=== PATIENT | female | born 1995 | race Caucasian/White ===

== ENCOUNTER 2019-08-19 12:07 | Emergency (ER) | payer OTHER ==
[2019-08-19] MEDS ORDERED: HYDROmorphone 0.5 MG/0.5 ML Syringe IVPUSH ONE (12:33)
[2019-08-19] MEDS ORDERED: Ondansetron 4 MG/2 ML SDV IVPUSH ONE (12:33)
--- NOTE | 2019-08-19 12:41 | EDM.PDOC ---
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 She states that this cramping began yesterday, but the bleeding did not begin until approximately 30 minutes prior to arrival. Patient did see her PYRIDINE RECOVERY OPERATOR doctor Marija yesterday and states that she did notify her of this cramping, however she was told that everything was normal on her ultrasound. She states that she was not given an estimated due date, and she is unsure of her last menstrual period. She thought her first miss period may have been an May, however she states that Dr. Dutton said she thought it was likely closer to March. She has had daily vomiting for the last week with intermittent diarrhea. She is unsure of her blood type. In addition, patient complains of sore throat, productive cough, fever and chills for the last couple days. She is concerned that she may have strep throat. She has not been checking her temperatures at home, however she did state that Dr. Dutton told her her temperature was "up a little bit " yesterday in the clinic. She denies shortness of breath. She did not have a flu shot this year. 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 Denies: Ear Pain Respiratory: Reports: Cough. Denies: Shortness of Breath, Wheezing Cardiovascular: Reports: No Symptoms Endocrine: Reports: No Symptoms GI/Abdominal: Reports: Diarrhea, Nausea, Vomiting : Reports: Pain (pelvic ), Other (heavy bleeding with clots) Musculoskeletal: Reports: No Symptoms Skin: Reports: No Symptoms Neurological: Reports: No Symptoms Psychiatric: Reports: No Symptoms Hematologic/Lymphatic: Reports: No Symptoms Immunologic: Reports: No Symptoms ED EXAM - Physical Exam Exam: See Below Exam Limited By: No Limitations General Appearance: Alert, WD/WN, Mild Distress Ears: Normal External Exam, Normal Canal, Normal TMs Nose: Normal Inspection, Normal Mucosa Throat/Mouth: Inflammation (tonsilar and uvula) Head: Atraumatic, Normocephalic Neck: Normal Inspection, Supple, Non-Tender Respiratory/Chest: No Respiratory Distress, Lungs Clear, Normal Breath Sounds, No Accessory Muscle Use, Chest Non-Tender Cardiovascular: Normal Peripheral Pulses, Regular Rate, Rhythm, No Murmur GI/Abdominal Exam: Normal Bowel Sounds, Soft, Non-Tender, No Distention (Female) Exam: Enlarged Uterus, Vaginal Bleeding (moderate amount). No: Cervical Dilatation, Cervical Lesions, Tissue Present in Cervix/Vagina, Vaginal Lesions, Vaginal Tears Neurological: Alert, Oriented, Normal Cognition Psychiatric: Normal Affect, Normal Mood Skin Exam: Warm, Dry, Intact, Normal Color, No Rash Course - Vital Signs Last Recorded V/S: Last Vital Signs Temp 97.8 F 08/19/19 12:16 Pulse 93 08/19/19 12:16 Resp 16 08/19/19 12:16 BP 127/81 08/19/19 12:16 Pulse Ox 100 08/19/19 12:16 - Orders/Labs/Meds Orders: Active Orders 24 hr Category Date Time Status Pelvic Exam, Set Up [RC] ASDIRECTED Care 08/19/19 12:57 Active CULTURE STREP A CONFIRMATION [RM] Stat Lab 08/19/19 13:10 Results PATIENT RETYPE [BBK] Routine Lab 08/19/19 14:08 Ordered STREP SCRN A RAPID W CULT CONF [RM] Stat Lab 08/19/19 13:10 Results Labs: Laboratory Tests 08/19/19 08/19/19 08/19/19 Range/Units 12:40 12:40 12:40 WBC 4.33 (3.98-10.04) K/mm3 RBC 4.52 (3.98-5.22) M/mm3 Hgb 14.2 (11.2-15.7) gm/dl Hct 42.5 (34.1-44.9) % MCV 94.0 (79.4-94.8) fl MCH 31.4 (25.6-32.2) pg MCHC 33.4 (32.2-35.5) g/dl RDW Std Deviation 44.5 (36.4-46.3) fL Plt Count 185 (182-369) K/mm3 MPV 11.0 (9.4-12.3) fl Neut % (Auto) 68.4 (34.0-71.1) % Lymph % (Auto) 12.7 L (19.3-51.7) % [place] % (Auto) 18.5 H (4.7-12.5) % Eos % (Auto) 0 L (0.7-5.8) Baso % (Auto) 0.2 (0.1-1.2) % Neut # (Auto) 2.96 (1.56-6.13) K/mm3 Lymph # (Auto) 0.55 L (1.18-3.74) K/mm3 [place] # (Auto) 0.80 H (0.24-0.36) K/mm3 Eos # (Auto) 0.00 L (0.04-0.36) K/mm3 Baso # (Auto) 0.01 (0.01-0.08) K/mm3 Sodium 136 (136-145) mEq/L Potassium 3.2 L (3.5-5.1) mEq/L Chloride 100 (98-107) mEq/L Carbon Dioxide 23 (21-32) mEq/L Anion Gap 16.2 H (5-15) BUN 7 (7-18) mg/dL Creatinine 0.9 (0.55-1.02) mg/dL Est Cr Clr Drug Dosing 84.67 mL/min Estimated GFR (MDRD) > 60 (>60) mL/min BUN/Creatinine Ratio 7.8 L (14-18) Glucose 117 H (74-106) mg/dL Calcium 9.1 (8.5-10.1) mg/dL Total Bilirubin 0.4 (0.2-1.0) mg/dL AST 28 (15-37) U/L ALT 30 (14-59) U/L Alkaline Phosphatase 53 (46-116) U/L Total Protein 7.3 (6.4-8.2) g/dl Albumin 4.1 (3.4-5.0) g/dl Globulin 3.2 gm/dL Albumin/Globulin Ratio 1.3 (1-2) HCG, Quant 80307.0 mIU/mL Blood Type 08/19/19 Range/Units 12:40 WBC (3.98-10.04) K/mm3 RBC (3.98-5.22) M/mm3 Hgb (11.2-15.7) gm/dl Hct (34.1-44.9) % MCV (79.4-94.8) fl MCH (25.6-32.2) pg MCHC (32.2-35.5) g/dl RDW Std Deviation (36.4-46.3) fL Plt Count (182-369) K/mm3 MPV (9.4-12.3) fl Neut % (Auto) (34.0-71.1) % Lymph % (Auto) (19.3-51.7) % [place] % (Auto) (4.7-12.5) % Eos % (Auto) (0.7-5.8) Baso % (Auto) (0.1-1.2) % Neut # (Auto) (1.56-6.13) K/mm3 Lymph # (Auto) (1.18-3.74) K/mm3 [place] # (Auto) (0.24-0.36) K/mm3 Eos # (Auto) (0.04-0.36) K/mm3 Baso # (Auto) (0.01-0.08) K/mm3 Sodium (136-145) mEq/L Potassium (3.5-5.1) mEq/L Chloride (98-107) mEq/L Carbon Dioxide (21-32) mEq/L Anion Gap (5-15) BUN (7-18) mg/dL Creatinine (0.55-1.02) mg/dL Est Cr Clr Drug Dosing mL/min Estimated GFR (MDRD) (>60) mL/min BUN/Creatinine Ratio (14-18) Glucose (74-106) mg/dL Calcium (8.5-10.1) mg/dL Total Bilirubin (0.2-1.0) mg/dL AST (15-37) U/L ALT (14-59) U/L Alkaline Phosphatase (46-116) U/L Total Protein (6.4-8.2) g/dl Albumin (3.4-5.0) g/dl Globulin gm/dL Albumin/Globulin Ratio (1-2) HCG, Quant mIU/mL Blood Type A POSITIVE Meds: Medications Discontinued Medications Generic Name Dose Route Start Last Admin Trade Name Freq PRN Reason Stop Dose Admin Hydromorphone HCl 0.5 mg 08/19/19 12:33 08/19/19 12:49 Dilaudid IVPUSH 08/19/19 12:34 0.5 mg ONETIME ONE Administration Hydromorphone HCl Confirm 08/19/19 12:45 08/19/19 14:48 Dilaudid Administered 08/19/19 12:46 Not Given Dose 0.5 mg .ROUTE .STK-MED ONE Sodium Chloride 1,000 mls @ 150 mls/hr 08/19/19 12:45 08/19/19 12:51 Normal Saline IV 150 mls/hr ASDIRECTED ADEN Administration Ondansetron HCl 4 mg 08/19/19 12:33 08/19/19 12:49 Zofran IVPUSH 08/19/19 12:34 4 mg ONETIME ONE Administration Potassium Chloride 40 meq 08/19/19 14:46 08/19/19 14:54 Klor-Con M20 PO 08/19/19 14:47 40 meq ONETIME ONE Administration - Re-Assessments/Exams Free Text/Narrative Re-Assessment/Exam: 08/19/19 14:54 Patient's transvaginal ultrasound impression is as follows: 1. Single intrauterine gestation. Dates as noted above. 2. 2 cysts within the maternal right ovary is met with measurements as noted above. 3. Very small subchorionic hemorrhage. Estimated gestational age is 6 weeks 4 days with an estimated due date of . Her labs indicated that her potassium is mildly low at 3.2 and her quantitative hCG is elevated at 49,608 which is compatible with a from 4-6 weeks. Blood type is a positive so there is no need for rhogam. I have ordered KCl 40 meq oral. On exam, there was a moderate amount of blood and clots present in the vaginal canal. Source of bleeding was identified as the cervical os. Cervix is closed on bimanual exam. It is unsure at this point if the source of the patient's bleeding is from a spontaneous or from the chorionic hemorrhage. I did educate the patient on this and that at this point what she is having is what is considered a threatened miscarriage. I will discharge her home with instructions to return to the ER if she saturating more than 2 pads per hour for 2 hours or she has worsening pain. She will go home with some Hartly as for the pain as needed. We have scheduled her an appointment with Dr. West at 8:30 on Thursday for a follow-up as she requests not to follow-up with Dr. Dutton. With regard to her respiratory complaints. Her strep and influenza swab were negative it is likely that she is suffering from a viral respiratory infection. Discharge instructions as noted. Departure - Departure Time of Disposition: 14:55 Disposition: Home, Self-Care 01 Clinical Impression: Threatened , Viral respiratory illness - Discharge Information *PRESCRIPTION DRUG MONITORING PROGRAM REVIEWED*: No *COPY OF PRESCRIPTION DRUG MONITORING REPORT IN PATIENT HINA: No Prescriptions: Acetaminophen/HYDROcodone [Hartly 325-5 MG] 1 tab PO Q4H PRN #10 tablet PRN Reason: Pain Instructions: Viral Respiratory Infection, [id number], Threatened Miscarriage , [id number] Referrals: Jose West MD [Physician] - Forms: ED Department Discharge Additional Instructions: You were seen in the emergency department today with pelvic pain, heavy, vaginal bleeding, and cough with sore throat. Your ultrasound did show a single in the uterus with measurements of 6 weeks and 4 days and an estimated due date of 04/09/20. There is also a subchorionic hemorrhage present. At this time, you have a threatened miscarriage. We will discharge you home at this time. If your bleeding should worsen and you are saturating 2 or more pads for 2 hours or if you pain worsens, you should return to the emergency department. We recommend that you take over the county Tylenol for pain. We have also prescribed you Hartly for pain. You may take 1 tab every 4 hours as needed for pain for pain not relieved by tylenol. Please be aware that the Hartly does contain 325mg of tylenol per tablet and you should not exceed 4000mg from all sources in a 24 hour period. Please follow-up on Thursday with OBGYN. An appointment has been scheduled for you with Dr. Jose West at the at 0830 on Thursday morning. If you experience any new or worsening symptoms, please do not hesitate to return to the emergency department. Sepsis Event Note - Evaluation Sepsis Screening Result: No Definite Risk - Focused Exam Vital Signs: Vital Signs Temp Pulse Resp BP Pulse Ox 08/19/19 12:16 97.8 F 93 16 127/81 100 Date Exam was Performed: 08/19/19 Time Exam was Performed: 18:26 - My Orders Last 24 Hours: My Active Orders 08/19/19 12:57 Pelvic Exam, Set Up [RC] ASDIRECTED 08/19/19 13:10 CULTURE STREP A CONFIRMATION [RM] Stat STREP SCRN A RAPID W CULT CONF [RM] Stat 08/19/19 14:08 PATIENT RETYPE [BBK] Routine - Assessment/Plan Last 24 Hours: My Active Orders 08/19/19 12:57 Pelvic Exam, Set Up [RC] ASDIRECTED 08/19/19 13:10 CULTURE STREP A CONFIRMATION [RM] Stat STREP SCRN A RAPID W CULT CONF [RM] Stat 08/19/19 14:08 PATIENT RETYPE [BBK] Routine
[2019-08-19] MEDS ORDERED: HYDROmorphone 0.5 MG/0.5 ML Syringe ONE (12:45)
[2019-08-19] MEDS ORDERED: Sodium Chloride 0.9% 1,000 ML IV SCH (12:45)
--- NOTE | 2019-08-19 14:27 | US ---
First trimester obstetrical ultrasound: Multiple real-time images were obtained transvaginally. Comparison: No previous study for current . Dates: Current ultrasound: REBEKAH 04/09/20, gestational age 6 weeks 4 days Single intrauterine gestation is seen. Amniotic fluid volume is normal. Small pole and yolk sac are present. Two cysts are noted within the maternal right ovary measuring 2.1 cm and 2.0 cm. No free fluid is seen. Small subchorionic hemorrhage is seen. Measurements: [place]-rump length: 0.63 cm - 6 weeks 4 days Heart rate: 112 bpm Impression: 1. Single intrauterine gestation. Dates as noted above. 2. Two cysts within the maternal right ovary with measurements as noted above. 3. Very small subchorionic hemorrhage. Diagnostic code #2 This report was dictated in [place] Standard Time
[2019-08-19] MEDS ORDERED: Potassium Chloride 20 MEQ Tab.ER PO ONE (14:46)
== END 2019-08-19 15:16 | disposition home or self-care (01) ==
LOC: JD.ED 12:07
DX: O20.0 Threatened abortion (principal); O99.511 Diseases of the respiratory system complicating pregnancy, first trimester; J98.9 Respiratory disorder, unspecified; O98.511 Other viral diseases complicating pregnancy, first trimester; B34.9 Viral infection, unspecified; O99.341 Other mental disorders complicating pregnancy, first trimester; F41.9 Anxiety disorder, unspecified; F32.9 Major depressive disorder, single episode, unspecified; Z79.899 Other long term (current) drug therapy; Z98.890 Other specified postprocedural states; Z87.891 Personal history of nicotine dependence; Z3A.01 Less than 8 weeks gestation of pregnancy
CPT/HCPCS: 36415; 76817; 80053; 84702; 85025; 86900; 86901; 87081; 87430; 87804; 96361; 96374; 96375; 99284; A9270; J1170; J2405; J7030; 99283

== ENCOUNTER 2019-08-24 10:39 | Emergency (ER) | payer OTHER ==
[2019-08-24] MEDS ORDERED: Sodium Chloride 0.9% 10 ML Syringe FLUSH PRN (11:29)
[2019-08-24] MEDS ORDERED: Sodium Chloride 0.9% 1,000 ML IV ONE (11:31)
[2019-08-24] MEDS ORDERED: Metoclopramide 10 MG/2 ML SDV IVPUSH ONE (11:32)
[2019-08-24] MEDS ORDERED: HYDROmorphone 0.5 MG/0.5 ML Syringe IVPUSH ONE ×2 (11:32→13:19)
[2019-08-24] MEDS ORDERED: diphenhydrAMINE 50 MG/ML SDV IVPUSH ONE (11:33)
--- NOTE | 2019-08-24 11:47 | EDM.PDOC ---
ED HPI GENERAL MEDICAL PROBLEM - General Chief Complaint: Gastrointestinal Problem Stated Complaint: MISCARRIAGE,WEAK Time Seen by Provider: 08/24/19 10:57 Source of Information: Reports: Patient, Family (mother), Old Records (visit from 08/19/19), RN Notes Reviewed History Limitations: Reports: No Limitations - History of Present Illness INITIAL COMMENTS - FREE TEXT/NARRATIVE: Patient is a 24-year-old female who presents to the ED for multiple complaints. Patient notes she was seen in this ER on 08/19/2019, and was evaluated for a threatened miscarriage. Her hCG level at that time was 49,608, her blood type is A+, and the ultrasound showed a single intrauterine gestation with a heartbeat of 112 bpm, at a gestational age of around 6 weeks 4 days, there was also a subchorionic hemorrhage present. She had strep screen and flu screen done at that time, both of these were negative. She was sent home with some pain medication, and general recommendations and to follow-up with Dr. West 08/22/2019. Patient notes she was still feeling under the weather, so did not go to this appointment. Patient notes she has not had much for vaginal bleeding since Thursday, and states that she is still having sharp abdominal pains in her lower abdomen, she would rate this at 9 out of 10. She notes she is still having all over body aches, feelings of generalized weakness, she has not been eating much due to a poor appetite, subjective fevers and chills, she has not taken her temperature at home, and she is afebrile at time of ER triage. She states she has a headache that is around a 10 out of 10, she is having some nausea and vomiting and diarrhea, however the diarrhea is intermittent. This is patient's first , so she is a G1, P0. She was following with Dr. Dougherty, but states she is going to try to switch BUS DRIVER providers. Patient notes that her last Sarah Ann pain medication that she took was on Thursday, as she was only prescribed 10 tablets. Abdomen Pain Score (Numeric/FACES): 9 - Related Data Allergies Allergy/AdvReac Type Severity Reaction Status Date / Time No Known Allergies Allergy Verified 08/19/19 12:15 Home Meds: Home Meds Sertraline [Zoloft] 50 mg PO DAILY 08/19/19 [History] Past Medical History Respiratory History: Reports: Asthma BUS DRIVER History: Reports: Psychiatric History: Reports: Anxiety, Depression - Infectious Disease History Infectious Disease History: Reports: Chicken Pox - Past Surgical History HEENT Surgical History: Reports: Adenoidectomy, Tonsillectomy Social & Family History - Family History Family Medical History: Noncontributory - Tobacco Use Smoking Status *Q: Never Smoker Second Hand Smoke Exposure: No - Caffeine Use Caffeine Use: Reports: None - Recreational Drug Use Recreational Drug Use: No ED ROS GENERAL - Review of Systems Review Of Systems: See Below Constitutional: Reports: Fever (subjective), Chills (subjective), Malaise ( generalized), Decreased Appetite. Denies: Weight Loss HEENT: Reports: Throat Pain (sore throat) Respiratory: Denies: Shortness of Breath Cardiovascular: Reports: Chest Pain (chest discomfort from coughing) GI/Abdominal: Reports: Abdominal Pain (Lower abd/pelvic pain) : Reports: Other (NO active vaginal bleeding). Denies: Discharge, Dysuria, Frequency, Urgency ED EXAM, GENERAL - Physical Exam Exam: See Below Exam Limited By: No Limitations General Appearance: Alert, WD/WN, No Apparent Distress Eye Exam: Bilateral Eye: EOMI, Normal Inspection, PERRL Ears: Normal External Exam, Normal Canal, Hearing Grossly Normal, Normal TMs Nose: Normal Inspection Throat/Mouth: Normal Inspection, Normal Lips, Normal Teeth, Normal Gums, Normal Oropharynx, Normal Voice, No Airway Compromise Head: Atraumatic, Normocephalic Neck: Normal Inspection, Supple, Non-Tender, Full Range of Motion Respiratory/Chest: No Respiratory Distress, Lungs Clear, Normal Breath Sounds, No Accessory Muscle Use, Chest Non-Tender Cardiovascular: Normal Peripheral Pulses, Regular Rate, Rhythm, No Murmur Peripheral Pulses: 3+: Radial (L), Radial (R) GI/Abdominal: Normal Bowel Sounds, Soft, No Distention, No Mass, Tender ( Bilateral lower abdomen) (Female) Exam: Normal External Exam, Normal Speculum Exam, Uterine Tenderness (on bimanual exam, pt had moderate discomfort), Vaginal Discharge ( Small amount of thick whitish discharge noted in vaginal vault, not malodorous) . No: Cervical Discharge, Cervical Fluid, Products of Conception, Vaginal Bleeding Extremities: Normal Inspection, Normal Capillary Refill Neurological: Alert, Oriented, Normal Cognition, No Motor/Sensory Deficits Psychiatric: Normal Affect, Normal Mood Skin Exam: Warm, Dry, Intact, Normal Color, No Rash Course - Vital Signs Last Recorded V/S: Last Vital Signs Temp 98.1 F 08/24/19 10:53 Pulse Resp 18 08/24/19 10:53 BP Pulse Ox 100 08/24/19 10:53 Orthostatic Blood Pressure [ 114/91 Standing] Orthostatic Blood Pressure [ 124/73 Sitting] Orthostatic Blood Pressure [ 124/67 Supine] - Orders/Labs/Meds Orders: Active Orders 24 hr Category Date Time Status Orthostatic Vital Signs [RC] ASDIRECTED Care 08/24/19 11:49 Ordered Peripheral IV Care [RC] . DIRECTED Care 08/24/19 11:30 Active OB Transvaginal [US] Stat Exams 08/24/19 11:30 Ordered Sodium Chloride 0.9% [Saline Flush] Med 08/24/19 11:29 Active 10 ml FLUSH ASDIRECTED PRN Peripheral IV Insertion Adult [OM.PC] Stat Oth 08/24/19 11:30 Ordered Medication Orders Sodium Chloride (Saline Flush) 10 ml FLUSH ASDIRECTED PRN PRN Reason: Keep Vein Open Last Admin: 08/24/19 11:40 Dose: 10 ml Labs: Laboratory Tests 08/24/19 08/24/19 Range/Units 11:39 11:39 WBC 4.85 (3.98-10.04) K/mm3 RBC 4.51 (3.98-5.22) M/mm3 Hgb 14.0 (11.2-15.7) gm/dl Hct 41.9 (34.1-44.9) % MCV 92.9 (79.4-94.8) fl MCH 31.0 (25.6-32.2) pg MCHC 33.4 (32.2-35.5) g/dl RDW Std Deviation 43.1 (36.4-46.3) fL Plt Count 151 L (182-369) K/mm3 MPV 11.3 (9.4-12.3) fl Neut % (Auto) 42.9 (34.0-71.1) % Lymph % (Auto) 36.3 (19.3-51.7) % [place] % (Auto) 19.6 H (4.7-12.5) % Eos % (Auto) 0.6 L (0.7-5.8) Baso % (Auto) 0.4 (0.1-1.2) % Neut # (Auto) 2.08 (1.56-6.13) K/mm3 Lymph # (Auto) 1.76 (1.18-3.74) K/mm3 [place] # (Auto) 0.95 H (0.24-0.36) K/mm3 Eos # (Auto) 0.03 L (0.04-0.36) K/mm3 Baso # (Auto) 0.02 (0.01-0.08) K/mm3 Manual Slide Review Abnormal smear Sodium 141 (136-145) mEq/L Potassium 3.6 (3.5-5.1) mEq/L Chloride 105 (98-107) mEq/L Carbon Dioxide 24 (21-32) mEq/L Anion Gap 15.6 H (5-15) BUN 6 L (7-18) mg/dL Creatinine 0.7 (0.55-1.02) mg/dL Est Cr Clr Drug Dosing 108.86 mL/min Estimated GFR (MDRD) > 60 (>60) mL/min BUN/Creatinine Ratio 8.6 L (14-18) Glucose 82 (74-106) mg/dL Calcium 8.5 (8.5-10.1) mg/dL Total Bilirubin 0.2 (0.2-1.0) mg/dL AST 16 (15-37) U/L ALT 32 (14-59) U/L Alkaline Phosphatase 65 (46-116) U/L Total Protein 6.6 (6.4-8.2) g/dl Albumin 3.5 (3.4-5.0) g/dl Globulin 3.1 gm/dL Albumin/Globulin Ratio 1.1 (1-2) HCG, Quant 92303.0 mIU/mL Meds: Medications Generic Name Dose Route Start Last Admin Trade Name Freq PRN Reason Stop Dose Admin Sodium Chloride 10 ml 08/24/19 11:29 08/24/19 11:40 Saline Flush FLUSH 10 ml ASDIRECTED PRN Administration Keep Vein Open Discontinued Medications Generic Name Dose Route Start Last Admin Trade Name Freq PRN Reason Stop Dose Admin Diphenhydramine HCl 25 mg 08/24/19 11:33 08/24/19 11:41 Benadryl IVPUSH 08/24/19 11:34 25 mg ONETIME ONE Administration Hydromorphone HCl 0.5 mg 08/24/19 11:32 08/24/19 11:42 Dilaudid IVPUSH 08/24/19 11:33 0.5 mg ONETIME ONE Administration Hydromorphone HCl 0.5 mg 08/24/19 13:19 08/24/19 13:27 Dilaudid IVPUSH 08/24/19 13:20 0.5 mg ONETIME ONE Administration Sodium Chloride 1,000 mls @ 999 mls/hr 08/24/19 11:31 08/24/19 11:39 Normal Saline IV 08/24/19 12:31 999 mls/hr ONETIME ONE Administration Metoclopramide HCl 10 mg 08/24/19 11:32 08/24/19 11:39 Reglan IVPUSH 08/24/19 11:33 10 mg ONETIME ONE Administration - Re-Assessments/Exams Free Text/Narrative Re-Assessment/Exam: 08/24/19 11:51 Patient presents to the ED for the evaluation of multiple complaints. Due to the patient's ongoing abdominal pain, repeat ultrasound will be obtained to check for viability of the fetus, routine lab work to include CBC, CMP, and a hCG quantitative level. Patient will be given some IV fluids, 0.5 mg IV Dilaudid, 10 mg IV Reglan, 25 mg IV Benadryl for headache relief and abdominal pain relief. Will reassess need for more medications after the Dilaudid has been given. RN reported that the patient was slightly orthostatic at time of triage, so the fluid should do her well. At this time I do believe the symptoms are clinically consistent with influenza, even though her influenza swab was negative. Patient has been using Tylenol and used the Sarah Ann prescription that she was given, but states she ran out on Thursday. 08/24/19 12:42 Patient's labs have started result, CBC was within normal limits, hemoglobin is also within normal limits, metabolic panel shows no obvious acute abnormality, anion gap is mildly elevated, hCG level is 89,093, which would be consistent with a viable at this time. Likely that the patient is having generalized symptoms from the flu. Ultrasound is still pending. 08/24/19 13:12 Pelvic exam done at bedside, and there is a small amount of thick whitish discharge noted. Swab was obtained and wet prep has been ordered. Patient states that she was just checked for STDs before and was negative, She has no concern for possible STD at this time. 08/24/19 13:43 Patient's wet prep is back, demonstrates normal radhika. At time of pelvic exam, patient was complaining of increased headache pain and abdominal pain again. I did order 0.5 mg IV Dilaudid for further pain management. Ultrasound report is still pending at this time. After ultrasound results are done, I will consult with Dr. Butler/Dr. Bolivar, BUS DRIVER on-call on patient's ongoing abdominal pain and negative wet prep. 08/24/19 14:43 Ultrasound is done, and demonstrates single living intrauterine gestation, heart rate at 152 bpm. Gestational age of 7 weeks 2 days. There is a complex cyst noted within the right ovary measuring 1.8 x 1.3 x 1.3 cm. Simple cyst also noted on the right ovary measuring 1.5 x 2.0 x 2.1 cm. There is a small amount of fluid noted within the cul-de-sac. Otherwise no acute processes noted. At this time I will discharge the patient home with general recommendations and have her follow-up with BUS DRIVER in the next week or so. Departure - Departure Time of Disposition: 14:44 Disposition: Home, Self-Care 01 Condition: Fair Clinical Impression: Influenza, Pelvic pain affecting in first trimester, antepartum, Ovarian cyst affecting in first trimester, antepartum Headache Qualifiers: Headache type: other headache syndrome Qualified Code(s): G44.89 - Other headache syndrome - Discharge Information *PRESCRIPTION DRUG MONITORING PROGRAM REVIEWED*: No *COPY OF PRESCRIPTION DRUG MONITORING REPORT IN PATIENT HINA: No Instructions: Round Ligament Pain, Abdominal Pain During , Easy-to- Read, Influenza, Adult, [id number] Referrals: PCP,None [Primary Care Provider] - Forms: ED Department Discharge Additional Instructions: You have been evaluated in the ED for multiple symptoms. Your clinical course is suggestive of influenza at this time, however this was not obtained on a influenza swab. You may take Tylenol every 6 hours as needed for further pain relief.. Recommend increased fluid intake as well as a bland diet until you can tolerate normal foods. Your was evaluated again today, this demonstrated a heart rate of 152 bpm, and a gestational age of 7 weeks 2 days, with an estimated delivery date 04/09/2020. Your hCG level at today's visit is 89,093. Recommend that you take some [id number] cough/cold remedies, you were given a list of medications that are safe to use in , please use this to help guide medication choices. Recommend you follow-up with BUS DRIVER within the next week, to make sure everything is getting better. In , illnesses can take a little bit of time to get better, as you have a mild amount of immunosuppression due to the nature of . If you are not feeling much better in 5 to 7 days time, recommend that you seek care for reevaluation. Please return to the ED if your symptoms should change or worsen. Sepsis Event Note - Evaluation Sepsis Screening Result: No Definite Risk - Focused Exam Vital Signs: Vital Signs Temp Resp Pulse Ox 08/24/19 10:53 98.1 F 18 100 Date Exam was Performed: 08/24/19 Time Exam was Performed: 14:43 - My Orders Last 24 Hours: My Active Orders 08/24/19 11:29 Sodium Chloride 0.9% [Saline Flush] 10 ml FLUSH ASDIRECTED PRN 08/24/19 11:30 Peripheral IV Care [RC] . DIRECTED OB Transvaginal [US] Stat Peripheral IV Insertion Adult [OM.PC] Stat 08/24/19 11:49 Orthostatic Vital Signs [RC] ASDIRECTED - Assessment/Plan Last 24 Hours: My Active Orders 08/24/19 11:29 Sodium Chloride 0.9% [Saline Flush] 10 ml FLUSH ASDIRECTED PRN 08/24/19 11:30 Peripheral IV Care [RC] . DIRECTED OB Transvaginal [US] Stat Peripheral IV Insertion Adult [OM.PC] Stat 08/24/19 11:49 Orthostatic Vital Signs [RC] ASDIRECTED
--- NOTE | 2019-08-25 09:50 | US ---
First trimester obstetrical ultrasound: Multiple real-time images were obtained transvaginally. Comparison: Previous obstetrical ultrasound of 08/19/19. Dates: Current ultrasound: RE[facility] 04/09/20, gestational age 7 weeks 2 days Earliest ultrasound (08/19/19): REBEKAH 04/09/20, gestational age 7 weeks 2 days Single intrauterine gestation is seen. Amniotic fluid volume is normal. Small embryo is seen as well as yolk sac. No subchorionic hemorrhage is seen at this time. Small simple cyst is noted within the maternal right ovary measuring 2.1 cm. Slightly complicated cyst is noted within the right ovary measuring 1.8 cm. Small amount of fluid is seen within the cul-de-sac which is likely incidental. Measurements: [place]-rump length: 1.15 cm - 7 weeks 2 days Heart rate: 152 bpm Impression: 1. Single intrauterine gestation. Dates as noted above. 2. Two stable cyst within the maternal right ovary. 3. Fluid within the cul-de-sac believed to be incidental. Diagnostic code #2 This report was dictated in [place] Standard Time
== END 2019-08-24 15:08 | disposition home or self-care (01) ==
LOC: JD.ED 10:39
DX: O34.81 Maternal care for other abnormalities of pelvic organs, first trimester (principal); N83.201 Unspecified ovarian cyst, right side; O98.511 Other viral diseases complicating pregnancy, first trimester; J11.1 Influenza due to unidentified influenza virus with other respiratory manifestations; O99.351 Diseases of the nervous system complicating pregnancy, first trimester; G44.89 Other headache syndrome; O99.341 Other mental disorders complicating pregnancy, first trimester; F41.9 Anxiety disorder, unspecified; F32.9 Major depressive disorder, single episode, unspecified; Z3A.01 Less than 8 weeks gestation of pregnancy; Z79.899 Other long term (current) drug therapy
CPT/HCPCS: 36415; 76817; 80053; 84702; 85025; 87210; 87808; 96361; 96374; 96375; 96376; 99285; J1170; J1200; J2765; J7030